=== PATIENT | female | born 1985 | race Caucasian/White ===

== ENCOUNTER 2018-11-14 14:48 | Emergency (ER) | payer OTHER ==
[~2018-11-14] VITALS: Ht 165.1 cm; Wt 68.0 kg
[2018-11-14] MEDS ORDERED: cloNIDine HCL 0.1 MG TABLET PO ONE (15:45)
--- NOTE | 2018-11-14 15:47 | PHYS DOC ---
Past Medical History Past Medical History: Anxiety, Depression, Hypertension Past Surgical History: No Surgical History Alcohol Use: None Drug Use: None Adult General Chief Complaint Chief Complaint: HYPERTENSION HPI HPI Patient is a 33 year old female with history of anxiety, depression, hypertension, who presents to the ED today to be evaluated for high blood pressure. Patient states she just came from [facility] to see her PCP and was sent to the ED because her blood pressure was 260/170 in the office. Patient states the PCP had originally ordered lisinopril, Sertraline and Clonazepam for her but because her blood pressure was very high they send her to the ED to be evaluated. Patient denies any symptoms. Patient states she was already seen at [facility] on Tuesday for high blood pressure, they gave her one tablet of high blood pressure medication and send her home. She states last year when she saw her PCP she was started on lisinopril and Losartan, she states the losartan got recalled and she has not been taking the lisinopril either. Patient denies any chest pain or shortness of breath. Denies any headache. She appears anxious she states she has not taken her anxiety medications. PCP Dr. Jeffrey Review of Systems Review of Systems Constitutional: Denies fever or chills [] Eyes: Denies change in visual acuity, redness, or eye pain [] HENT: Denies nasal congestion or sore throat [] Respiratory: Denies cough or shortness of breath [] Cardiovascular: No additional information not addressed in HPI [] GI: Denies abdominal pain, nausea, vomiting, bloody stools or diarrhea [] : Denies dysuria or hematuria [] Musculoskeletal: Denies back pain or joint pain [] Integument: Denies rash or skin lesions [] Neurologic: Denies headache, focal weakness or sensory changes [] Pysch: anxiety All other systems were reviewed and found to be within normal limits, except as documented in this note. Current Medications Current Medications Current Medications Medications (Trade) Dose Ordered Sig/Yadi Start Time Stop Time Status Last Admin Dose Admin Clonidine HCl (Catapres) 0.1 mg 1X ONCE 11/14/18 15:45 11/14/18 15:46 DC 11/14/18 16:04 0.1 MG Allergies Allergies Allergies Coded Allergies Type Severity Reaction Last Updated Verified No Known Drug Allergies 10/08/13 No Physical Exam Physical Exam Constitutional: Well developed, well nourished, no acute distress, non-toxic appearance. [] HENT: Normocephalic, atraumatic, bilateral external ears normal, oropharynx moist, no oral exudates, nose normal. [] Eyes: PERRLA, EOMI, conjunctiva normal, no discharge. [] Neck: Normal range of motion, no tenderness, supple, no stridor. [] Cardiovascular:Heart rate regular rhythm, no murmur [] Lungs & Thorax: Bilateral breath sounds clear to auscultation [] Abdomen: Bowel sounds normal, soft, no tenderness, no masses, no pulsatile masses. [] Skin: Warm, dry, no erythema, no rash. [] Back: No tenderness, no CVA tenderness. [] Extremities: No tenderness, no cyanosis, no clubbing, ROM intact, no edema. [] Neurologic: Alert and oriented X 3, normal motor function, normal sensory function, no focal deficits noted. [] Psychologic: Patient appears anxious. She is shaking Current Patient Data Vital Signs Vital Signs Date Time Temp Pulse Resp B/P (MAP) Pulse Ox O2 Delivery O2 Flow Rate FiO2 11/14/18 16:04 84 201/102 11/14/18 14:52 98.2 22 99 Room Air 98.2 Lab Values Laboratory Tests Test 11/14/18 16:05 11/14/18 16:45 White Blood Count 8.4 x10^3/uL (4.0-11.0) Red Blood Count 4.66 x10^6/uL (3.50-5.40) Hemoglobin 14.9 g/dL (12.0-15.5) Hematocrit 44.5 % (36.0-47.0) Mean Corpuscular Volume 96 fL (79-100) Mean Corpuscular Hemoglobin 32 pg (25-35) Mean Corpuscular Hemoglobin Concent 34 g/dL (31-37) Red Cell Distribution Width 14.7 % (11.5-14.5) H Platelet Count 166 x10^3/uL (140-400) Neutrophils (%) (Auto) 79 % (31-73) H Lymphocytes (%) (Auto) 15 % (24-48) L Monocytes (%) (Auto) 4 % (0-9) Eosinophils (%) (Auto) 1 % (0-3) Basophils (%) (Auto) 1 % (0-3) Neutrophils # (Auto) 6.7 x10^3uL (1.8-7.7) Lymphocytes # (Auto) 1.2 x10^3/uL (1.0-4.8) Monocytes # (Auto) 0.4 x10^3/uL (0.0-1.1) Eosinophils # (Auto) 0.1 x10^3/uL (0.0-0.7) Basophils # (Auto) 0.1 x10^3/uL (0.0-0.2) Prothrombin Time 13.6 SEC (11.7-14.0) Prothrombin Time INR 1.1 (0.8-1.1) PTT 24 SEC (24-38) Sodium Level 140 mmol/L (136-145) Potassium Level 3.5 mmol/L (3.5-5.1) Chloride Level 97 mmol/L (98-107) L Carbon Dioxide Level 31 mmol/L (21-32) Anion Gap 12 (6-14) Blood Urea Nitrogen 5 mg/dL (7-20) L Creatinine 0.6 mg/dL (0.6-1.0) Estimated GFR (Cockcroft-Gault) 115.1 Glucose Level 95 mg/dL (70-99) Calcium Level 9.6 mg/dL (8.5-10.1) Magnesium Level 1.6 mg/dL (1.8-2.4) L Creatine Kinase 69 U/L (26-192) Creatine Kinase MB (Mass) < 0.5 ng/mL (0.0-3.6) Creatine Kinase MB Relative Index % (0-4) Troponin I Quantitative < 0.017 ng/mL (0.000-0.055) MW-Pvj-S-Type Natriuretic Peptide 189 pg/mL (0-124) H Thyroid Stimulating Hormone (TSH) 2.593 uIU/mL (0.358-3.74) Ethyl Alcohol Level < 10 mg/dL (0-10) Urine Collection Type Unknown Urine Color Yellow Urine Clarity Clear Urine pH 8.0 Urine Specific [place] 1.015 Urine Protein 30 mg/dL (NEG-TRACE) Urine Glucose (UA) Negative mg/dL (NEG) Urine Ketones (Stick) Negative mg/dL (NEG) Urine Blood Negative (NEG) Urine Nitrite Negative (NEG) Urine Bilirubin Negative (NEG) Urine Urobilinogen Dipstick 1.0 mg/dL (0.2 mg/dL) Urine Leukocyte Esterase Negative (NEG) Urine RBC 1-2 /HPF (0-2) Urine WBC 1-4 /HPF (0-4) Urine Squamous Epithelial Cells Many /LPF Urine Bacteria Moderate /HPF (0-FEW) Urine Mucus Marked /LPF Urine Opiates Screen Neg (NEG) Urine Methadone Screen Neg (NEG) Urine Barbiturates Neg (NEG) Urine Phencyclidine Screen Neg (NEG) Urine Amphetamine/Methamphetamine Neg (NEG) Urine Benzodiazepines Screen Neg (NEG) Urine Cocaine Screen Neg (NEG) Urine Cannabinoids Screen Pos (NEG) Urine Ethyl Alcohol Pos (NEG) Laboratory Tests 11/14/18 16:05 Laboratory Tests 11/14/18 16:05 EKG EKG 15:[address] Arenas sinus rhythm heart rate 77 no STEMI Radiology/Procedures Radiology/Procedures []PROCEDURE: PORTABLE CHEST 1V EXAM: Chest, single view. HISTORY: Hypertension. COMPARISON: None. FINDINGS: A frontal view of the chest is obtained. There is no infiltrate, pleural effusion or pneumothorax. The heart is normal in size. IMPRESSION: No acute pulmonary finding. Electronically signed by: Noelle Samaniego MD (11/14/2018 3:51 PM) [facility] DICTATED and SIGNED BY: NOELLE SAMANIEGO MD DATE: 11/14/18 155 PROCEDURE: CT HEAD WO CONTRAST CT HEAD WO CONTRAST Indication: HEADACHE, HTN, NO PRIORS Exposure: One or more of the following individualized dose reduction techniques were utilized for this examination: 1. Automated exposure control 2. Adjustment of the mA and/or kV according to patient size 3. Use of iterative reconstruction technique. Technique: Standard imaging without intravenous contrast. No evidence of acute intracranial hemorrhage, mass effect, midline shift or abnormal extra-axial fluid collection. Ventricles and sulci are symmetric. Hypoattenuation in the medial left temporal lobe is thought to be artifactual. Miller-white matter distinction is intact. The partially visualized sinuses demonstrate minimal mucosal thickening of the maxillary sinuses. No acute skull abnormality. Orbits appear unremarkable. IMPRESSION: No evidence of acute intracranial hemorrhage or mass effect. MR brain could be of benefit for further evaluation. Electronically signed by: Bernabe Strong MD (11/14/2018 4:35 PM) [facility] DICTATED and SIGNED BY: BERNABE STRONG MD DATE: 11/14/18 1808 Course & Med Decision Making Course & Med Decision Making Pertinent Labs and Imaging studies reviewed. (See chart for details) This is a 33-year-old female patient with history of hypertension and anxiety presenting to the ED today for high blood pressure. Patient was seen at the PCPs office and blood pressure was 260/176 and was sent to the ED. She has no symptoms. She already has a prescription for lisinopril, Zoloft and clonazepam from her PCP. Blood pressure arrival to the ED 204/119 with a heart rate in the 80s. Patient was given clonidine in arrival to the ED. CBC with no acute findings, BMP with no acute findings. Troponin is normal. EKG is negative. Urine noted for [address] of the head and chest x-ray are negative. Blood pressure right now 175/92, discussed results with the patient. Patient has good follow-up with her PCP. He already has a plan of managing her blood pressure including increasing lisinopril dose if her blood pressure stays elevated tomorrow. She was discharged to home. Dragon Disclaimer Dragon Disclaimer This electronic medical record was generated, in whole or in part, using a voice recognition dictation system. Departure Departure Impression: Primary Impression: Anxiety Additional Impression: Hypertension Disposition: 01 HOME, SELF-CARE Condition: STABLE Referrals: MYAH FIELD DO (PCP) Follow-up in 3-7 days Patient Instructions: Anxiety and Panic Attacks, Hypertension Additional Instructions: You were evaluated in the emergency room for hypertension. Please start taking lisinopril today. Please follow-up with your doctor in the next 3-7 days. Ensure you are also taking your anxiety medicines. Come back to the ED at any point symptoms worsen. Problem Qualifiers Additional Impression: Hypertension Hypertension type: unspecified Qualified Codes: I10 - Essential (primary) hypertension MALKA RUSH APRN Nov 14, 2018 15:47
--- NOTE | 2018-11-14 15:54 | RAD ---
EXAM: Chest, single view. HISTORY: Hypertension. COMPARISON: None. FINDINGS: A frontal view of the chest is obtained. There is no infiltrate, pleural effusion or pneumothorax. The heart is normal in size. IMPRESSION: No acute pulmonary finding. Electronically signed by: Noelle Encinas MD (11/14/2018 3:51 PM) [place] [id number]
[2018-11-14 16:14] LABS: BASO # 0.1 x10^3/uL (0.0-0.2); BASO % 1 % (0-3); EOS # 0.1 x10^3/uL (0.0-0.7); EOS % 1 % (0-3); HEMATOCRIT 44.5 % (36.0-47.0); HEMOGLOBIN 14.9 g/dL (12.0-15.5); LYMPH # 1.2 x10^3/uL (1.0-4.8); LYMPH % 15 % (24-48); MEAN CORPUSCULAR HEMOGLOBIN 32 pg (25-35); MEAN CORPUSCULAR HGB CONC 34 g/dL (31-37); MEAN CORPUSCULAR VOLUME 96 fL (79-100); MONO # 0.4 x10^3/uL (0.0-1.1); MONO % 4 % (0-9); NEUT # 6.7 x10^3uL (1.8-7.7); NEUT % 79 % (31-73); PLATELET COUNT 166 x10^3/uL (140-400); RED BLOOD COUNT 4.66 x10^6/uL (3.50-5.40); RED CELL DISTRIBUTION WIDTH 14.7 % (11.5-14.5); WHITE BLOOD COUNT 8.4 x10^3/uL (4.0-11.0)
--- NOTE | 2018-11-14 16:24 | EKG ---
[facility] [address] [place] [address] Test Date: 2018-11-14 Test Time: 15:51:30 Pat Name: MUSTAPHA LARSEN Department: Room: Gender: F Sociology Teacher: : 1985 Requested By: MALKA RUSH Order Number: [id number] Reading MD: Don Black MD Measurements Intervals [place] Rate: 77 P: 45 [place]: 142 QRS: 37 QRSD: 86 T: 62 QT: 422 QTc: 479 Interpretive Statements SINUS RHYTHM NON-SPECIFIC ST/T CHANGES Electronically Signed On 11-16-2018 14:43:35 CDT by Don Black MD
[2018-11-14 16:25] LABS: PROTHROMBIN TIME PATIENT 13.6 SEC (11.7-14.0)
[2018-11-14 16:35] LABS: CALCIUM 9.6 mg/dL (8.5-10.1); CREATININE 0.6 mg/dL (0.6-1.0); GFR 115.1; MAGNESIUM 1.6 mg/dL (1.8-2.4); POTASSIUM 3.5 mmol/L (3.5-5.1)
--- NOTE | 2018-11-14 16:38 | RAD ---
CT HEAD WO CONTRAST Indication: HEADACHE, HTN, NO PRIORS Exposure: One or more of the following individualized dose reduction techniques were utilized for this examination: 1. Automated exposure control 2. Adjustment of the mA and/or kV according to patient size 3. Use of iterative reconstruction technique. Technique: Standard imaging without intravenous contrast. No evidence of acute intracranial hemorrhage, mass effect, midline shift or abnormal extra-axial fluid collection. Ventricles and sulci are symmetric. Hypoattenuation in the medial left temporal lobe is thought to be artifactual. Miller-white matter distinction is intact. The partially visualized sinuses demonstrate minimal mucosal thickening of the maxillary sinuses. No acute skull abnormality. Orbits appear unremarkable. IMPRESSION: No evidence of acute intracranial hemorrhage or mass effect. MR brain could be of benefit for further evaluation. Electronically signed by: Bernabe Strong MD (11/14/2018 4:35 PM) [id number]
[2018-11-14 16:51] LABS: CREATINE KINASE 69 U/L (26-192)
[2018-11-14 16:56] LABS: BILIRUBIN,URINE NEGATIVE (NEG); CLARITY,URINE CLEAR; COLOR,URINE YELLOW; NITRITE,URINE NEGATIVE (NEG); PROTEIN,URINE 30 mg/dL (NEG-TRACE)
[2018-11-14 17:01] LABS: BARBITURATES NEG (NEG); BENZODIAZEPINES NEG (NEG); CANNABINOIDS POS (NEG); COCAINE NEG (NEG); METHADONE NEG (NEG); OPIATES NEG (NEG); PHENCYCLIDINE NEG (NEG)
[2018-11-14 17:03] LABS: AMPHETAMINE/METHAMPHETAMINE NEG (NEG)
[2018-11-14 17:05] LABS: SQUAMOUS EPITHELIAL CELL,UR MANY /LPF
[2018-11-14 17:06] LABS: BACTERIA,URINE MODERATE /HPF (0-FEW)
[2018-11-14 17:46] VITALS: BP 175/92
== END 2018-11-14 18:04 | disposition home or self-care (01) ==
LOC: ER 14:48
DX: I10 Essential (primary) hypertension (principal); F41.9 Anxiety disorder, unspecified; R51 Headache; F32.9 Major depressive disorder, single episode, unspecified
CPT/HCPCS: 36415; 70450; 71045; 80048; 80307; 81001; 82553; 83735; 83880; 84443; 84484; 85025; 85610; 85730; 87086; 93005; 99284; G0480